=== PATIENT | female | born 1965 | race Hispanic/Latino ===

== ENCOUNTER 2025-04-04 05:36 | Day surgery (SDC) | payer OTHER ==
[2025-04-04] VITALS (10 sets, daily range): BP systolic 111–133; BP diastolic 57–69; PULSE 69–79; RESP 12–18; TEMP 97–98.4
[~2025-04-04] VITALS: Ht 157.5 cm; Wt 72.1 kg
[2025-04-04] MEDS: 0.9%NACL 1000ML 1,000 ML IV ONE (07:02)
[2025-04-04] MEDS ORDERED: TELM80TA10 PO (07:03)
[2025-04-04] MEDS ORDERED: SEMA1PEN3 SQ (07:03)
[2025-04-04] MEDS ORDERED: LEVO100C5 PO (07:03)
[2025-04-04] MEDS ORDERED: ROSU40TA88 PO (07:03)
--- NOTE | 2025-04-04 09:21 | NUR ---
Full and complete discharge instruction regarding Gastro procedure to Patient and Family. All questions answered. PIV removed with catheter tip intact. Tolerated fluids and voided in bathroom. W/C to POV with Family.
== END 2025-04-04 09:26 | disposition home or self-care (01) ==
LOC: ENDO 05:36 → DAH 05:36 → ENDO 09:26
PROVIDERS: ATTEND Internal Medicine
DX: R11.0 Nausea (principal); K62.1 Rectal polyp; K57.30 Diverticulosis of large intestine without perforation or abscess without bleeding; E11.9 Type 2 diabetes mellitus without complications; Z88.1 Allergy status to other antibiotic agents; Z88.5 Allergy status to narcotic agent; Z79.899 Other long term (current) drug therapy
CPT/HCPCS: 45385; 82948 ×2; J7030; J2704; A4620; A4215 ×2; A4223; A4222; A4221; A4663; A4606; J3490